=== PATIENT | male | born 1985 | race Hispanic/Latino ===

== ENCOUNTER 2017-12-08 12:35 | Emergency (ER) | payer SELFPAY ==
--- NOTE | 2017-12-08 16:14 | ER ---
Nurse's Notes [facility] Name: Rai Oconnell Age: 32 yrs Sex: Male : 1985 Arrival Date: 12/08/2017 Time: 12:37 Bed Treatment Private MD: None, None Diagnosis: Sprain of ankle;Achilles Tendon Sprain Presentation: 12/08 13:25 Presenting complaint: Patient states: Yesterday at about 1:00 he slipped on a rock and aj1 hurt his left ankle. Reports that the pain and swelling to the left ankle has gotten worse since then. Limited ROM to left ankle. Swelling noted to left ankle. Patient is unable to bear weight on left leg. Transition of care: patient was not received from another setting of care. Onset of symptoms was December 07, 2017. Risk Assessment: Do you want to hurt yourself or someone else? Patient reports no desire to harm self or others. Initial Sepsis Screen: Does the patient meet any 2 criteria? No. Patient's initial sepsis screen is negative. Does the patient have a suspected source of infection? No. Patient's initial sepsis screen is negative. Care prior to arrival: None. 13:25 Method Of Arrival: Wheelchair aj1 13:25 Acuity: MISAEL 4 aj1 Triage Assessment: 13:28 General: Appears in no apparent distress. comfortable, Behavior is calm, cooperative, aj1 appropriate for age. Pain: Complains of pain in left lateral ankle Pain currently is 9 out of 10 on a pain scale. Neuro: Level of Consciousness is awake, alert, obeys commands. Cardiovascular: Patient's skin is warm and dry. Respiratory: Airway is patent Respiratory effort is even, unlabored, Respiratory pattern is regular, symmetrical. Derm: Skin is pink, warm \T\ dry. normal. Musculoskeletal: Range of motion: limited in left ankle Swelling present in left lateral ankle. Historical: - Allergies: 13:28 PENICILLINS; aj1 - Home Meds: 13:28 None [Active]; aj1 - PMHx: 13:28 Hypertension; aj1 - Immunization history:: Flu vaccine is not up to date. - Social history:: Smoking status: Patient uses tobacco products, denies chronic smoking, but will smoke occasionally. - Ebola Screening: : Patient denies travel to an Ebola-affected area in the 21 days before illness onset. Screenin:38 Abuse screen: Denies threats or abuse. Denies injuries from another. Nutritional hb screening: No deficits noted. Tuberculosis screening: No symptoms or risk factors identified. Fall Risk None identified. Assessment: 13:40 General: Appears in no apparent distress. Behavior is calm, cooperative. Pain: Pain hb currently is 10 out of 10 on a pain scale. Neuro: Level of Consciousness is awake, alert, obeys commands, Oriented to person, place, time, situation. Cardiovascular: Capillary refill < 3 seconds Patient's skin is warm and dry. Respiratory: Airway is patent Trachea midline Respiratory effort is even, unlabored, Respiratory pattern is regular, symmetrical. Musculoskeletal: Range of motion: limited in left ankle. 14:40 Reassessment: Patient appears in no apparent distress at this time. No changes from hb previously documented assessment. Patient and/or family updated on plan of care and expected duration. Pain level reassessed. Patient is alert, oriented x 3, equal unlabored respirations, skin warm/dry/pink. Awaiting radiology results at this time. 15:30 Reassessment: Patient appears in no apparent distress at this time. No changes from hb previously documented assessment. Patient and/or family updated on plan of care and expected duration. Pain level reassessed. Patient is alert, oriented x 3, equal unlabored respirations, skin warm/dry/pink. 16:30 Reassessment: Patient appears in no apparent distress at this time. No changes from hb previously documented assessment. Patient and/or family updated on plan of care and expected duration. Pain level reassessed. Patient is alert, oriented x 3, equal unlabored respirations, skin warm/dry/pink. Vital Signs: 13:28 BP 135 / 98; Pulse 77; Resp 18; Temp 98.2; Pulse Ox 98% on R/A; Weight 127.01 kg (R); aj1 Height 6 ft. 1 in. (185.42 cm) (R); Pain 9/10; 15:30 BP 132 / 88; Pulse 76; Resp 16; Pulse Ox 100% on R/A; Pain 8/10; hb 13:28 Body Mass Index 36.94 (127.01 kg, 185.42 cm) aj1 ED Course: 12:37 Patient arrived in ED. sb2 12:37 None, None is Private Physician. sb2 13:28 Triage completed. aj1 13:28 Arm band placed on Patient placed in an exam room. aj1 13:32 Chris Sethi PA is PHCP. [facility] 13:32 Deion Dumas MD is Attending Physician. jmm 13:40 Patient has correct armband on for positive identification. Call light in reach. hb 14:20 Ankle Left 3 View XRAY In Process Unspecified. EDMS 14:20 Foot Left 3 View XRAY In Process Unspecified. EDMS 14:52 Paola Mak, RN is Primary Nurse. hb 15:59 Orthoglass splint: Posterior short lleg splint applied on left leg. capillary refill dh3 less than 3 seconds. 16:13 Sherman Linarse MD is Referral Physician. [facility] 16:38 No provider procedures requiring assistance completed. Patient did not have IV access hb during this emergency room visit. Administered Medications: 16:24 Drug: [place] 10 mg-325 mg 1 tabs Route: PO; hb 16:37 Follow up: Response: Medication administered at discharge. Outcome: 16:14 Discharge ordered by MD. [facility] 16:38 Discharged to home with crutches. hb 16:38 Condition: stable 16:38 Discharge instructions given to patient, family, Instructed on discharge instructions, follow up and referral plans. medication usage, crutch walking, Demonstrated understanding of instructions, follow-up care, medications, crutch walking, splint care, Prescriptions given X 1. 16:38 Patient left the ED. hb Signatures: Dispatcher [employer] EDMS Abigail Cantu RN RN aj1 Chris Sethi PA PA jmm Baxter, Heather, RN RN Arleth Owens 3 Kaitlyn Gunderson 2
--- NOTE | 2017-12-08 16:14 | EDPHYS ---
Physician Documentation [facility] Name: Rai Oconnell Age: 32 yrs Sex: Male : 1985 Arrival Date: 12/08/2017 Time: 12:37 Bed Treatment Private MD: None, None ED Physician Deion Dumas HPI: 12/08 14:00 This 32 yrs old Male presents to ER via Wheelchair with complaints of Ankle jmm Injury. 14:00 The patient presents with an injury, pain, that is acute. The complaints affect the jmm left ankle. Onset: The symptoms/episode began/occurred acutely, yesterday. Associated signs and symptoms: Pertinent positives: swelling. This is a 32 year old male with a history of htn that presents to the ED with right ankle pain which occurred after slipping on a rock. Patient denies other injury. . Historical: - Allergies: 13:28 PENICILLINS; aj1 - Home Meds: 13:28 None [Active]; aj1 - PMHx: 13:28 Hypertension; aj1 - Immunization history:: Flu vaccine is not up to date. - Social history:: Smoking status: Patient uses tobacco products, denies chronic smoking, but will smoke occasionally. - Ebola Screening: : Patient denies travel to an Ebola-affected area in the 21 days before illness onset. ROS: 14:00 Constitutional: Negative for fever, chills, and weight loss, Cardiovascular: Negative jmm for chest pain, palpitations, and edema, Respiratory: Negative for shortness of breath, cough, wheezing, and pleuritic chest pain. 14:00 MS/extremity: Positive for pain, swelling. 14:00 All other systems are negative. Exam: 14:00 Head/Face: atraumatic. Chest/axilla: Normal chest wall appearance and motion. jmm Cardiovascular: Regular rate and rhythm. No edema appreciated Respiratory: Normal respirations, no respiratory distress appreciated 14:00 Constitutional: The patient appears in no acute distress, alert, awake. 14:00 Musculoskeletal/extremity: swelling is noted to the right ankle, pain is elicited on palpation of the medial and lateral malleolus, full dorsalis pulse, compartments soft, NVI. 14:00 Skin: Appearance: Color: normal in color. 14:00 Neuro: Orientation: is normal, Mentation: is normal, Memory: is normal. 14:00 Psych: Behavior/mood is pleasant, cooperative. Vital Signs: 13:28 BP 135 / 98; Pulse 77; Resp 18; Temp 98.2; Pulse Ox 98% on R/A; Weight 127.01 kg (R); aj1 Height 6 ft. 1 in. (185.42 cm) (R); Pain 9/10; 15:30 BP 132 / 88; Pulse 76; Resp 16; Pulse Ox 100% on R/A; Pain 8/10; hb 13:28 Body Mass Index 36.94 (127.01 kg, 185.42 cm) [facility] Procedures: 16:11 Splinting: Splint applied to left ankle using posterior with plantarflexion. applied by [facility] tech. Examined by me, post splint application: neurovascular intact, 2+ distal pulses palpable, brisk capillary refill noted, Patient tolerated. MDM: 13:48 Patient medically screened. [facility] 16:11 Data reviewed: vital signs, EMS record, radiologic studies, plain films. Counseling: I [facility] had a detailed discussion with the patient and/or guardian regarding: the historical points, exam findings, and any diagnostic results supporting the discharge/admit diagnosis, radiology results, the need for outpatient follow up, to return to the emergency department if symptoms worsen or persist or if there are any questions or concerns that arise at home. 08 13:48 Order name: Ankle Left 3 View XRAY [facility] 12/08 13:48 Order name: Foot Left 3 View XRAY [facility] 12/08 15:32 Order name: Posterior Leg Splint; Complete Time: 16:00 [facility] 12/08 15:38 Order name: Crutches; Complete Time: 16:00 [facility] Administered Medications: 16:24 Drug: [place] 10 mg-325 mg 1 tabs Route: PO; hb 16:37 Follow up: Response: Medication administered at discharge. Disposition: 17:52 Co-signature as Attending Physician, Deion Dumas MD. rn Disposition: 12/08/17 16:14 Discharged to Home. Impression: Sprain of ankle, Achilles Tendon Sprain. - Condition is Stable. - Discharge Instructions: Achilles Tendinitis, Ankle Sprain. - Prescriptions for Ibuprofen 800 mg Oral Tablet - take 1 tablet by ORAL route every 8 hours As needed take with food; 30 tablet. - Medication Reconciliation Form, Thank You Letter, Antibiotic Education, Prescription Opioid Use, Work release form form. - Follow up: Sherman Linares MD; When: 2 - 3 days; Reason: Recheck today's complaints, Continuance of care, Re-evaluation by your physician. Signatures: Dispatcher [employer] Abigail Faria RN RN aj1 Chris Sethi PA PA jmm Nieto, Roman, MD MD rn Baxter, Heather, RN RN hb Corrections: (The following items were deleted from the chart) 16:38 16:14 12/08/2017 16:14 Discharged to Home. Impression: Sprain of ankle; Achilles Tendon hb Sprain. Condition is Stable. Forms are Medication Reconciliation Form, Thank You Letter, Antibiotic Education, Prescription Opioid Use. Follow up: Dr. Sherman Linares; When: 2 - 3 days; Reason: Recheck today's complaints, Continuance of care, Re-evaluation by your physician. amalia
[2017-12-08] MEDS ORDERED: HYDROCODONE/APAP 10/325 TAB ONE (16:34)
[2017-12-08 16:57] VITALS: TEMP 98.2
[2017-12-08 16:58] VITALS: BP 132/88; O2SAT 100
--- NOTE | 2017-12-08 17:12 | RAD REPORT ---
EXAM DESCRIPTION: RAD - Ankle Left 3 View - 12/08/2017 2:20 pm CLINICAL HISTORY: Slip and fall, twisting injury, ankle pain COMPARISON: None. FINDINGS: No fracture, dislocation or periosteal reaction. No joint effusion seen. No joint space na rrowing. No soft tissue abnormality. Lateral soft tissue swelling is present. IMPRESSION: Soft tissue swelling with no left ankle fracture.
--- NOTE | 2017-12-08 17:12 | RAD REPORT ---
EXAM DESCRIPTION: RAD - Foot Left 3 View - 12/08/2017 2:20 pm COMPARISON: None. FINDINGS: No fracture, dislocation or periosteal reaction. No acute or destructive bony process. No air or foreign body in the soft tissues. IMPRESSION: Negative left foot examination.
== END 2017-12-08 16:38 | disposition home or self-care (01) ==
LOC: ER 12:35
PROC: 2W3RX1Z Immobilization of Left Lower Leg using Splint (ICD-10-PCS; principal; 2017-12-08)
DX: S86.012A Strain of left Achilles tendon, initial encounter (principal); S93.402A Sprain of unspecified ligament of left ankle, initial encounter; X58.XXXA Exposure to other specified factors, initial encounter; Y93.89 Activity, other specified; Y92.89 Other specified places as the place of occurrence of the external cause; Z88.0 Allergy status to penicillin; Z72.0 Tobacco use; I10 Essential (primary) hypertension
CPT/HCPCS: 99284

== ENCOUNTER 2021-04-02 04:22 | Emergency (ER) | payer SELFPAY ==
[2021-04-02] MEDS ORDERED: ACETAMINOPHEN 500 MG TAB ONE (05:00)
[2021-04-02] MEDS ORDERED: METOCLOPRAMIDE 10 MG/2mL INJ ONE (05:00)
[2021-04-02] MEDS ORDERED: DIPHENHYDRAMINE 50 MG/ML VIAL ONE (05:00)
[2021-04-02] MEDS ORDERED: NA CHLORIDE 0.9% 500 ML ONE (05:01)
[2021-04-02 05:29] LABS: Absolute Lymphocytes (CBC) 1.6 K/uL (0.7-4.9); Lymphocytes % 23.6 % (15.3-44.8); MPV 8.5 fL (7.6-11.3); RBC Red Blood Cell Count 4.86 M/uL (4.33-5.43)
[2021-04-02 05:31] LABS: Protime INR 1.03
[2021-04-02 05:57] LABS: ALT/SGPT 33 U/L (12-78); AST/SGOT 12 U/L (15-37); Albumin 3.7 g/dL (3.4-5.0); Alkaline Phosphatase 101 U/L (45-117); BUN Blood Urea Nitrogen 8 mg/dL (7-18); Bicarbonate 29 mmol/L (21-32); Bilirubin Direct < 0.1 mg/dL (0-0.2); Bilirubin Total 0.3 mg/dL (0.2-1.0); Glucose Level 113 mg/dL (74-106); Magnesium 2.3 mg/dL (1.8-2.4); NT PRO-BNP 21 pg/mL (<125); Potassium 4.1 mmol/L (3.5-5.1); Protein, Total 7.8 g/dL (6.4-8.2); Sodium Level 140 mmol/L (136-145); Troponin (Emerg Dept Use Only) < 0.02 ng/mL (0.0-0.045)
--- NOTE | 2021-04-02 07:07 | EDPHYS ---
Physician Documentation [facility] Name: Rai Oconnell Age: 35 yrs Sex: Male : 1985 Arrival Date: 04/02/2021 Time: 04:23 Bed 8 Private MD: ED Physician John Mckeon HPI: 04/02 04:32 This 35 yrs old Male presents to ER via EMS with complaints of Headache. mh7 04:32 The patient complains of pain to the Left side of head. The patient describes the mh7 headache as intermittent, throbbing, waxing and waning. Onset: The symptoms/episode began/occurred 2 day(s) ago. Associated signs and symptoms: Pertinent positives: Photophobia Pertinent negatives: altered mental status, fever, malaise, nausea, neck stiffness, paresthesias, rash, sinus congestion, sinus tenderness, vision changes, vision loss, vomiting, weakness, vertigo. Severity of symptoms: At its worst the pain was moderate, yesterday, in the emergency department the pain is unchanged. Headache History: The patient has had previous headaches and this one is similar to previous episodes. The symptoms are alleviated by NSAIDS, the symptoms are aggravated by lights, noise. Patient reports that his symptoms started after receiving his first Covid vaccination.. Historical: - Allergies: 04:29 NKA; as6 - Home Meds: 04:29 None [Active]; as6 - PMHx: 04:29 Hypertension; as6 - PSHx: 04:29 Appendectomy; as6 - Immunization history:: Adult Immunizations unknown, Client reports receiving the 1st dose of the Covid vaccine. - Social history:: Smoking status: Patient denies any tobacco usage or history of. ROS: 04:32 Constitutional: Negative for fever, chills, and weight loss, ENT: Negative for injury, mh7 pain, and discharge, Neck: Negative for injury, pain, and swelling, Cardiovascular: Negative for chest pain, palpitations, and edema, Respiratory: Negative for shortness of breath, cough, wheezing, and pleuritic chest pain, Abdomen/GI: Negative for abdominal pain, nausea, vomiting, diarrhea, and constipation, Back: Negative for injury and pain, : Negative for injury, bleeding, discharge, and swelling, MS/Extremity: Negative for injury and deformity, Skin: Negative for injury, rash, and discoloration, Psych: Negative for depression, anxiety, suicide ideation, homicidal ideation, and hallucinations, Allergy/Immunology: Negative for hives, rash, and allergies, Endocrine: Negative for neck swelling, polydipsia, polyuria, polyphagia, and marked weight changes, Hematologic/Lymphatic: Negative for swollen nodes, abnormal bleeding, and unusual bruising. Exam: 04:32 Eyes: Pupils equal round and reactive to light, extra-ocular motions intact. Lids and mh7 lashes normal. Conjunctiva and sclera are non-icteric and not injected. Cornea within normal limits. Periorbital areas with no swelling, redness, or edema. ENT: Nares patent. No nasal discharge, no septal abnormalities noted. Tympanic membranes are normal and external auditory canals are clear. Oropharynx with no redness, swelling, or masses, exudates, or evidence of obstruction, uvula midline. Mucous membranes moist. Neck: Trachea midline, no thyromegaly or masses palpated, and no cervical lymphadenopathy. Supple, full range of motion without nuchal rigidity, or vertebral point tenderness. No Meningismus. Chest/axilla: Normal chest wall appearance and motion. Nontender with no deformity. No lesions are appreciated. Cardiovascular: Regular rate and rhythm with a normal S1 and S2. No gallops, murmurs, or rubs. Normal PMI, no JVD. No pulse deficits. Respiratory: Lungs have equal breath sounds bilaterally, clear to auscultation and percussion. No rales, rhonchi or wheezes noted. No increased work of breathing, no retractions or nasal flaring. Abdomen/GI: Soft, non-tender, with normal bowel sounds. No distension or tympany. No guarding or rebound. No evidence of tenderness throughout. Back: No spinal tenderness. No costovertebral tenderness. Full range of motion. Skin: Warm, dry with normal turgor. Normal color with no rashes, no lesions, and no evidence of cellulitis. MS/ Extremity: Pulses equal, no cyanosis. Neurovascular intact. Full, normal range of motion. Neuro: Awake and alert, GCS 15, oriented to person, place, time, and situation. Cranial nerves II-XII grossly intact. Motor strength 5/5 in all extremities. Sensory grossly intact. Cerebellar exam normal. Normal gait. Psych: Awake, alert, with orientation to person, place and time. Behavior, mood, and affect are within normal limits. 04:32 Constitutional: The patient appears in no acute distress, alert, awake, uncomfortable. 04:32 Head/face: Noted is tenderness, that is moderate, of the Left scalp. Vital Signs: 04:23 BP 157 / 113; Pulse 72; Resp 20 S; Temp 98.9(O); Pulse Ox 99% on R/A; Weight 131.54 kg; as6 Height 6 ft. 1 in. (185.42 cm); Pain 8/10; 05:30 BP 133 / 96; Pulse 68; Resp 18; Pulse Ox 100% on R/A; tw5 06:43 BP 134 / 96; Pulse 60; Resp 18 S; Pulse Ox 100% on R/A; as6 04:23 Body Mass Index 38.26 (131.54 kg, 185.42 cm) as6 [place] Coma Score: 07:04 Eye Response: spontaneous(4). Verbal Response: oriented(5). Motor Response: obeys [facility] commands(6). Total: 15. MDM: 07:04 Differential diagnosis: cluster headache, intracerebral hemorrhage, migraine, tension mh7 headache. Data reviewed: vital signs, nurses notes, lab test result(s), CBC, electrolytes, EKG, radiologic studies, CT scan. Data interpreted: Pulse oximetry: on room air is 100 %. Interpretation: normal. Counseling: I had a detailed discussion with the patient and/or guardian regarding: the historical points, exam findings, and any diagnostic results supporting the discharge/admit diagnosis, the presence of at least one elevated blood pressure reading (>120/80) during this emergency department visit, lab results, radiology results, the need for outpatient follow up, to return to the emergency department if symptoms worsen or persist or if there are any questions or concerns that arise at home. Response to treatment: the patient's symptoms have resolved after treatment, the patient's blood pressure is in an acceptable range, mental status has returned to baseline, the patient no longer shows bradycardia, the patient is not short of breath, the patient is not tachycardic, the patient's pain is gone, the patient's temperature has normalized. 07:[address] [facility] 04/02 04:30 Order name: Basic Metabolic Panel; Complete Time: 07:00 [facility] 04/02 04:30 Order name: CBC with Diff; Complete Time: 05:53 [facility] 04/02 04:30 Order name: LFT's; Complete Time: 07:00 [facility] 04/02 04:30 Order name: Magnesium; Complete Time: 07:00 [facility] 04/02 04:30 Order name: NT PRO-BNP; Complete Time: 07:00 [facility] 04/02 04:30 Order name: PT-INR; Complete Time: 05:33 [facility] 04/02 04:30 Order name: Troponin (emerg Dept Use Only); Complete Time: 07:00 [facility] 04/02 04:30 Order name: XRAY Chest (1 view) [facility] 04/02 04:30 Order name: CT Head Brain wo Cont [facility] 04/02 04:32 Order name: COVID-19/FLU A+B (Document "Date of Onset" if Symptomatic) [facility] 04/02 04:30 Order name: EKG; Complete Time: 04:31 [facility] 04/02 04:30 Order name: Cardiac monitoring; Complete Time: 05:28 [facility] 04/02 04:30 Order name: EKG - Nurse/Tech; Complete Time: 05:28 [facility] 04/02 04:30 Order name: IV Saline Lock; Complete Time: 05:28 [facility] 04/02 04:30 Order name: Labs collected and sent; Complete Time: 05:28 [facility] 04/02 04:30 Order name: O2 Per Protocol; Complete Time: 05:28 [facility] 04/02 04:30 Order name: O2 Sat Monitoring; Complete Time: 05:28 Administered Medications: 05:27 Drug: Benadryl (diphenhydrAMINE) 50 mg Route: IVP; Site: right antecubital; as6 07:14 Follow up: Response: No adverse reaction tw 05:27 Drug: NS 0.9% 500 ml Route: IV; Rate: bolus; Site: right antecubital; as6 07:14 Follow up: IV Status: Completed infusion 05:27 Drug: Tylenol 1000 mg Route: PO; as6 07:14 Follow up: Response: No adverse reaction 05:28 Drug: Reglan (metoCLOPramide) 10 mg Route: IVP; Site: right antecubital; as6 07:14 Follow up: Response: No adverse reaction tw5 Disposition Summary: 04/02/21 07:06 Discharge Ordered Location: Home [facility] Problem: new mh7 Symptoms: have improved mh7 Condition: Stable mh7 Diagnosis - Headache 7 Followup: 7 - With: Private Physician - When: 1 - 2 days - Reason: Worsening of condition, Recheck today's complaints, Continuance of care, Re-evaluation by your physician Discharge Instructions: - Discharge Summary Sheet [facility] - General Headache Without Cause [facility] Forms: - Medication Reconciliation Form [facility] - Thank You Letter 7 - Antibiotic Education 7 - Prescription Opioid Use [facility] Signatures: Dispatcher [employer] John Amador MD MD 7 Brandt Raza RN RN as6 Carolyne Flores tw5 Corrections: (The following items were deleted from the chart) 04:30 04:29 Allergies: none; as6 as6
--- NOTE | 2021-04-02 07:07 | ER ---
Nurse's Notes [facility] Name: Rai Oconnell Age: 35 yrs Sex: Male : 1985 Arrival Date: 04/02/2021 Time: 04:23 Bed 8 Private MD: Diagnosis: Headache Presentation: 04/02 04:23 Chief complaint: Patient states: received first dose of covid vaccine on Saturday, has as6 had an worsening headache since, headache is causing blurred vision, dizziness. Coronavirus screen: Vaccine status: Patient reports receiving the 1st dose of the Covid vaccine. At this time, the client does not indicate any symptoms associated with coronavirus-19. Ebola Screen: No symptoms or risks identified at this time. Initial Sepsis Screen: Does the patient meet any 2 criteria? No. Patient's initial sepsis screen is negative. Does the patient have a suspected source of infection? No. Patient's initial sepsis screen is negative. Risk Assessment: Do you want to hurt yourself or someone else? Patient reports no desire to harm self or others. Onset of symptoms was March 31, 2021. 04:23 Method Of Arrival: EMS: [facility] as6 04:23 Acuity: MISAEL 4 as6 Historical: - Allergies: 04:29 NKA; as6 - Home Meds: 04:29 None [Active]; as6 - PMHx: 04:29 Hypertension; as6 - PSHx: 04:29 Appendectomy; as6 - Immunization history:: Adult Immunizations unknown, Client reports receiving the 1st dose of the Covid vaccine. - Social history:: Smoking status: Patient denies any tobacco usage or history of. Screenin:31 Abuse screen: Denies threats or abuse. Nutritional screening: No deficits noted. as6 Tuberculosis screening: No symptoms or risk factors identified. Fall Risk None identified. Assessment: 04:30 General: Appears in no apparent distress. uncomfortable, Behavior is calm, cooperative. as6 Pain: Complains of pain in headache. Neuro: Level of Consciousness is awake, alert, obeys commands, Oriented to person, place, time, situation, Reports blurred vision dizziness, headache. Cardiovascular: Capillary refill < 3 seconds Patient's skin is warm and dry. Respiratory: Airway is patent Trachea midline Respiratory effort is even, unlabored, Respiratory pattern is regular, symmetrical. Derm: Skin is intact, is healthy with good turgor, Skin is clammy, diaphoretic. 05:30 General: Reports " I feel really light headed". tw5 06:46 Reassessment: pt resting with eyes closed, pt aroused and stated "my headache is not as6 any better" pt then closed eyes again. Vital Signs: 04:23 BP 157 / 113; Pulse 72; Resp 20 S; Temp 98.9(O); Pulse Ox 99% on R/A; Weight 131.54 kg; as6 Height 6 ft. 1 in. (185.42 cm); Pain 8/10; 05:30 BP 133 / 96; Pulse 68; Resp 18; Pulse Ox 100% on R/A; tw5 06:43 BP 134 / 96; Pulse 60; Resp 18 S; Pulse Ox 100% on R/A; as6 04:23 Body Mass Index 38.26 (131.54 kg, 185.42 cm) as6 Karime Coma Score: 07:04 Eye Response: spontaneous(4). Verbal Response: oriented(5). Motor Response: obeys mh7 commands(6). Total: 15. ED Course: 04:23 Patient arrived in ED. as6 04:27 John Mckeon MD is Attending Physician. 7 04:29 Triage completed. as6 04:30 Arm band placed on. as6 04:32 Bed in low position. Call light in reach. Side rails up X2. Pulse ox on. NIBP on. as6 04:33 Brandt Raza, RN is Primary Nurse. as6 04:46 XRAY Chest (1 view) In Process Unspecified. EDMS 05:[address] tw5 05:30 Placed in gown. Door closed. Moved to private room. Warm blanket given. Verbal tw5 reassurance given. 05:30 EKG done, by ED staff, reviewed by John Mckeon MD. tw5 05:32 Basic Metabolic Panel Sent. tw5 05:32 CBC with Diff Sent. tw5 05:32 LFT's Sent. tw5 05:32 Magnesium Sent. tw5 05:32 NT PRO-BNP Sent. tw5 05:32 Troponin (emerg Dept Use Only) Sent. tw5 05:32 COVID-19/FLU A+B (Document "Date of Onset" if Symptomatic) Sent. tw5 05:57 CT Head Brain wo Cont In Process Unspecified. EDMS 07:14 No provider procedures requiring assistance completed. IV discontinued, intact, tw5 bleeding controlled, No redness/swelling at site. Pressure dressing applied. Administered Medications: 05:27 Drug: Benadryl (diphenhydrAMINE) 50 mg Route: IVP; Site: right antecubital; as6 07:14 Follow up: Response: No adverse reaction tw 05:27 Drug: NS 0.9% 500 ml Route: IV; Rate: bolus; Site: right antecubital; as6 07:14 Follow up: IV Status: Completed infusion tw 05:27 Drug: Tylenol 1000 mg Route: PO; as6 07:14 Follow up: Response: No adverse reaction tw 05:28 Drug: Reglan (metoCLOPramide) 10 mg Route: IVP; Site: right antecubital; as6 07:14 Follow up: Response: No adverse reaction tw Outcome: 07:06 Discharge ordered by . Orville 07:15 Discharged to home ambulatory. tw 07:15 Condition: good 07:15 Discharge instructions given to patient, Instructed on discharge instructions, follow up and referral plans. Demonstrated understanding of instructions, follow-up care. 07:15 Patient left the ED. Signatures: Dispatcher [employer] John Amador MD MD 7 Carolyne Flores tw5 Brandt Raza, RN RN as6 Corrections: (The following items were deleted from the chart) 04:30 04:29 Allergies: none; as6 as6
[2021-04-02 07:09] LABS: SARS-COV-2 RT PCR NEGATIVE (NEGATIVE)
[2021-04-02 07:20] VITALS: TEMP 98.9
[2021-04-02 07:21] VITALS: O2SAT 100
[2021-04-02 07:23] VITALS: BP 134/96
--- NOTE | 2021-04-02 08:23 | RAD REPORT ---
EXAM DESCRIPTION: RAD - Chest Single View - 04/02/2021 4:46 am CLINICAL HISTORY: hypertensive COMPARISON: March 2012 TECHNIQUE: AP portable chest image was obtained 04/02/2021 4:46 am . FINDINGS: No acute lung parenchymal process. No hilar mass or lymphadenopathy. No pulmonary artery e nlargement. Heart size is normal range for body habitus affects and portable imaging. Trachea is midl ine. No measurable pleural effusion and no pneumothorax. No acute bony abnormality seen. No acute aor tic findings suspected. IMPRESSION: No acute cardiopulmonary process.
--- NOTE | 2021-04-02 14:03 | RAD REPORT ---
EXAM DESCRIPTION: CT - Head Brain Wo Cont - 04/02/2021 6:49 am CLINICAL HISTORY: The patient is 35 years old and is Male; HEADACHE TECHNIQUE: Axial computed tomography images of the head/brain without intravenous contrast. Sagitt al and coronal reformatted images were created and reviewed. This CT exam was performed using one o r more of the following dose reduction techniques: automated exposure control, adjustment of the mA and/or kV according to patient size, and/or use of iterative reconstruction technique. COMPARISON: No relevant prior studies available. FINDINGS: Brain: Unremarkable. No hemorrhage. No significant white matter disease. No edema. Ventricles: Unremarkable. No ventriculomegaly. Bones/joints: Unremarkable. No acute skull fracture. Soft tissues: Unremarkable. Sinuses: Mucosal thickening left maxillary sinus. No air-fluid levels. Mastoid air cells: No significant mastoid fluid. IMPRESSION: No acute intracranial findings. No hemorrhage. Electronically signed by: Venus Weldon MD 04/02/2021 6:11 AM OFFICE ASST Due to temporary technical issues with the PACS/Fluency reporting system, reports are being signed by the in house radiologists without review as a courtesy to insure prompt reporting. The interpreting radiologist is fully responsible for the content of the report.
== END 2021-04-02 07:15 | disposition home or self-care (01) ==
LOC: ER 04:22
DX: R51.9 Headache, unspecified (principal); I10 Essential (primary) hypertension
CPT/HCPCS: 0240U; 36415; 70450; 71045; 80048; 80076; 83735; 83880; 84484; 85025; 85610; 93005; 96361; 96374; 96375; 99284; J1200; J2765; J7040

== ENCOUNTER 2023-09-23 22:00 | Emergency (ER) | payer SELFPAY, OTHER ==
--- OUTSIDE RECORDS SUMMARY | 2023-09-23 22:03 | XMS REPORT | Continuity of Care Document ---
Author Name Unknown Address [address] [place] [address] thconnect Address [address] [place] [address] 1 [address] [place] [address] Care Team Providers Care Vice President And Portfolio Manager Name Role Phone Unavailable Unavailable Unavailable Encounters Start Date/Time End Date/Time Encounter Type Admission Type Attending Clinicians Care Facility Care Department Encounter ID Source 2023-03-11 13:40:17 2023-03-11 13:40:17 Outpatient [facility] [id number] Trent Moore
[2023-09-23] MEDS ORDERED: KETOROLAC 30 MG/ML INJ ONE (22:39)
[2023-09-23] MEDS ORDERED: CYCLOBENZAPRINE 10 MG TAB ONE (22:39)
[2023-09-23] MEDS ORDERED: HYDROCODONE/APAP 5/325 MG TAB ONE (22:39)
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
[2023-09-24 01:09] VITALS: BP 132/107; TEMP 98.1; O2SAT 97
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
== END 2023-09-24 00:42 | disposition home or self-care (01) ==
LOC: ER 22:00
DX: M54.2 Cervicalgia (principal); M79.601 Pain in right arm; V49.49XA Driver injured in collision with other motor vehicles in traffic accident, initial encounter
CPT/HCPCS: 72125; 96372; 99284